=== PATIENT | male | born 1955 | race Hispanic/Latino ===

== ENCOUNTER → 2018-10-23 | Outpatient (CLI) | payer OTHER | END | disposition home or self-care (01) | LOC: SHCH 08:00 | PROVIDERS: ATTEND Internal Medicine Cardiovascular Disease | DX: I07.1 Rheumatic tricuspid insufficiency (principal); I47.2 Ventricular tachycardia | CPT/HCPCS: 93306 ==

== ENCOUNTER 2022-02-09 19:15 | Emergency (ER) | payer OTHER ==
[~2022-02-09] VITALS: Ht 177.8 cm; Wt 81.2 kg
[2022-02-09 19:18] VITALS: BP 123/72
[2022-02-09] MEDS ORDERED: D-ME1POW16 PO (20:34)
== END 2022-02-09 20:45 | disposition home or self-care (01) ==
LOC: EDH 19:15
DX: U07.1 COVID-19 (principal); J06.9 Acute upper respiratory infection, unspecified
CPT/HCPCS: 99283; 87635; C9803